=== PATIENT | female | born 1970 | race American Indian/Alaskan Native ===

== ENCOUNTER 2018-01-05 15:13 | Emergency (ER) | payer MEDICAID ==
[2018-01-05] MEDS ORDERED: Nitroglycerin 0.4 MG Tab.SL SL PRN (15:19)
[2018-01-05] MEDS ORDERED: LORazepam 2 MG/ML SDV IVPUSH ONE (15:24)
[2018-01-05] MEDS ORDERED: Sodium Chloride 0.9% 1,000 ML IV SCH (15:30)
[2018-01-05] MEDS ORDERED: HYDROmorphone 0.5 MG/0.5 ML Syringe IVPUSH ONE (15:35)
[2018-01-05] MEDS ORDERED: HYDROmorphone 1 MG/ML Syringe IVPUSH ONE ×2 (16:00→16:59)
--- NOTE | 2018-01-05 16:26 | EDM.PDOC ---
ED HPI GENERAL MEDICAL PROBLEM - General Chief Complaint: Chest Pain Stated Complaint: CHEST PAIN Time Seen by Provider: 01/05/18 15:25 Source of Information: Reports: Patient History Limitations: Reports: No Limitations (Pt arrived with pain in her left chest and neck. This started about noon. She was given niro x 2 and she did think she got some relief. The pain got worse later. She has a history of a bad ejection fraction and chf. She was at [facility] in November 2017. She has a pacemaker and a defribillator. She normally takes 3 hydrocodone daily and she has been out for 2 days. She missed her appt prior to leaving the [facility]. ) - History of Present Illness INITIAL COMMENTS - FREE TEXT/NARRATIVE: pt had chest pain about 12 thirty . She took 2 nitros and she developed pain again later in the afternoon and she was brought here. sHe has been out of her oxycodone and she is a asmita shakey because she is not taking that. She did not get to her appt Onset: Today, Other (Pt developed sudden chest pain. ) Duration: Hour(s): Location: Reports: Neck, Chest, Other ( She states the pain goes up into her neck) Associated Symptoms: Reports: Chest Pain chest Pain Score (Numeric/FACES): 8 - Related Data Allergies Allergy/AdvReac Type Severity Reaction Status Date / Time ceftriaxone [From Rocephin] Allergy Shortness Verified 01/05/18 15:27 of Breath codeine Allergy Shortness Verified 01/05/18 15:27 of Breath metformin Allergy Shortness Verified 01/05/18 15:27 of Breath morphine Allergy Shortness Verified 01/05/18 15:27 of Breath Penicillins Allergy Shortness Verified 01/05/18 15:27 of Breath Home Meds: Home Meds Acetaminophen [Tylenol] 650 mg PO Q4H PRN 01/05/18 [History] Bumetanide [Bumex] 4 mg PO BID 01/05/18 [History] Clopidogrel [Plavix] 75 mg PO DAILY 01/05/18 [History] Digoxin [Digox] 125 mcg PO DAILY 01/05/18 [History] Gabapentin [Neurontin] 300 mg PO TID 01/05/18 [History] Lisinopril [Zestril] 2.5 mg PO DAILY 01/05/18 [History] Metolazone 5 mg PO DAILY 01/05/18 [History] Metoprolol Succinate 12.5 mg PO DAILY 01/05/18 [History] Nitroglycerin [Nitrostat] 0.4 mg PO ASDIRECTED 01/05/18 [History] Pantoprazole [ProTONIX] 40 mg PO BID 01/05/18 [History] Potassium Chloride 20 meq PO BID 01/05/18 [History] Sennosides [Senna] 8.6 mg PO BID 01/05/18 [History] Sertraline [Zoloft] 50 mg PO DAILY 01/05/18 [History] Spironolactone [Aldactone] 12.5 mg PO DAILY 01/05/18 [History] Warfarin [Coumadin] 2.5 mg PO DAILY 01/05/18 [History] Warfarin [Coumadin] 5 mg PO ASDIRECTED 01/05/18 [History] diphenhydrAMINE [Benadryl] 25 mg PO BEDTIME 01/05/18 [History] oxyCODONE 5 mg PO Q6H PRN 01/05/18 [History] Past Medical History Cardiovascular History: Reports: Angina, Blood Clots/VTE/DVT, Heart Failure, [place] , Pacemaker FAMILY [employer]OURCE [employer]IST History: Reports: Psychiatric History: Reports: Anxiety - Past Surgical History GI Surgical History: Reports: Bariatric Procedure, Cholecystectomy Female Surgical History: Reports: Section, Tubal Ligation Social & Family History - Recreational Drug Use Recreational Drug Use: No ED ROS GENERAL - Review of Systems Review Of Systems: See Below Constitutional: Reports: No Symptoms HEENT: Reports: No Symptoms Respiratory: Reports: Shortness of Breath Cardiovascular: Reports: Chest Pain Endocrine: Reports: No Symptoms GI/Abdominal: Reports: No Symptoms : Reports: No Symptoms Musculoskeletal: Reports: No Symptoms Skin: Reports: No Symptoms Neurological: Reports: No Symptoms Psychiatric: Reports: Anxiety, Other ( Pt is anxious and she feels like she needs her hydrocodone. ) ED EXAM, GENERAL - Physical Exam Exam: See Below Free Text/Narrative:: pt arrived with left sided chest pain. She also has some pain on the left side of her neck. She has gotten relef with iv dilaudid She has been out of her narcotics for 3 days. She uses these for her chronic back pain. She is not markedly sob. Exam Limited By: No Limitations General Appearance: Alert, Anxious, Moderate Distress, Other (pupils equal and reactive. ) Ears: Normal TMs Ear Exam: Bilateral Ear: Auricle Normal, Canal Normal, TM normal Nose: Normal Inspection Throat/Mouth: Normal Inspection Head: Atraumatic Neck: Normal Inspection Respiratory/Chest: No Respiratory Distress Cardiovascular: Regular Rate, Rhythm, Other (pt has a pacemaker defribilatter in place. ) GI/Abdominal: Soft, Non-Tender (Female) Exam: Deferred Rectal (Female) Exam: Deferred Back Exam: Normal Inspection Extremities: Normal Inspection Neurological: Alert, Oriented, Normal Cognition Psychiatric: Normal Affect Course - Vital Signs Last Recorded V/S: Last Vital Signs Temp 36.7 C 01/05/18 15:24 Pulse 72 01/05/18 17:00 Resp 20 01/05/18 17:00 BP 96/66 01/05/18 17:00 Pulse Ox 97 01/05/18 17:00 - Orders/Labs/Meds Orders: Active Orders 24 hr Category Date Time Status EKG Documentation Completion [RC] ASDIRECTED Care 01/05/18 15:16 Active Chest 1V Frontal [CR] Stat Exams 01/05/18 15:16 Taken EKG 12 Lead [EK] Routine Ther 01/05/18 15:16 Ordered Labs: Laboratory Tests 01/05/18 01/05/18 01/05/18 Range/Units 15:16 15:16 15:16 WBC 6.9 (4.5-11.0) K/uL RBC 4.64 (3.30-5.50) M/uL Hgb 11.3 L (12.0-15.0) g/dL Hct 36.4 (36.0-48.0) % MCV 78 L (80-98) fL MCH 24 L (27-31) pg MCHC 31 L (32-36) % Plt Count 348 (150-400) K/uL Neut % (Auto) 76 H (36-66) % Lymph % (Auto) 13 L (24-44) % [place] % (Auto) 9 H (2-6) % Eos % (Auto) 2 (2-4) % Baso % (Auto) 0 (0-1) % PT (9.5-12.0) sec INR (0.80-1.20) Sodium 133 L (140-148) mmol/L Potassium 3.3 L (3.6-5.2) mmol/L Chloride 95 L (100-108) mmol/L Carbon Dioxide 27 (21-32) mmol/L Anion Gap 14.3 H (5.0-14.0) mmol/L BUN 34 H (7-18) mg/dL Creatinine 1.5 H (0.6-1.0) mg/dL Est Cr Clr Drug Dosing 41.72 mL/min Estimated GFR (MDRD) 37 L (>60) Glucose 178 H (74-106) mg/dL Calcium 8.5 (8.5-10.1) mg/dL Total Bilirubin 0.6 (0.2-1.0) mg/dL AST 33 (15-37) U/L ALT 32 (12-78) U/L Alkaline Phosphatase 129 H (46-116) U/L Troponin I 0.521 H* (0.000-0.056) ng/mL NT-Pro-B Natriuret Pep (5-125) pg/mL Total Protein 8.3 H (6.4-8.2) g/dL Albumin 3.7 (3.4-5.0) g/dL Globulin 4.6 H (2.3-3.5) g/dL Albumin/Globulin Ratio 0.8 L (1.2-2.2) Digoxin (0.90-2.00) ng/mL 01/05/18 01/05/18 01/05/18 Range/Units 16:19 16:38 16:46 WBC (4.5-11.0) K/uL RBC (3.30-5.50) M/uL Hgb (12.0-15.0) g/dL Hct (36.0-48.0) % MCV (80-98) fL MCH (27-31) pg MCHC (32-36) % Plt Count (150-400) K/uL Neut % (Auto) (36-66) % Lymph % (Auto) (24-44) % [place] % (Auto) (2-6) % Eos % (Auto) (2-4) % Baso % (Auto) (0-1) % PT 27.8 H (9.5-12.0) sec INR 2.67 H (0.80-1.20) Sodium (140-148) mmol/L Potassium (3.6-5.2) mmol/L Chloride (100-108) mmol/L Carbon Dioxide (21-32) mmol/L Anion Gap (5.0-14.0) mmol/L BUN (7-18) mg/dL Creatinine (0.6-1.0) mg/dL Est Cr Clr Drug Dosing mL/min Estimated GFR (MDRD) (>60) Glucose (74-106) mg/dL Calcium (8.5-10.1) mg/dL Total Bilirubin (0.2-1.0) mg/dL AST (15-37) U/L ALT (12-78) U/L Alkaline Phosphatase (46-116) U/L Troponin I (0.000-0.056) ng/mL NT-Pro-B Natriuret Pep 5817 H (5-125) pg/mL Total Protein (6.4-8.2) g/dL Albumin (3.4-5.0) g/dL Globulin (2.3-3.5) g/dL Albumin/Globulin Ratio (1.2-2.2) Digoxin 1.09 (0.90-2.00) ng/mL Meds: Medications Discontinued Medications Generic Name Dose Route Start Last Admin Trade Name Samanta PRN Reason Stop Dose Admin Hydromorphone HCl 0.5 mg 01/05/18 15:35 01/05/18 15:41 Dilaudid IVPUSH 01/05/18 15:36 0.5 mg ONETIME ONE Administration Hydromorphone HCl 1 mg 01/05/18 16:00 01/05/18 16:04 Dilaudid IVPUSH 01/05/18 16:01 1 mg ONETIME ONE Administration Hydromorphone HCl 1 mg 01/05/18 16:59 01/05/18 17:17 Dilaudid IVPUSH 01/05/18 17:00 1 mg ONETIME ONE Administration Sodium Chloride 1,000 mls @ 150 mls/hr 01/05/18 15:30 01/05/18 15:30 Normal Saline IV 150 mls/hr ASDIRECTED BRIJESH Administration Lorazepam 0.5 mg 01/05/18 15:24 01/05/18 15:31 Ativan IVPUSH 01/05/18 15:25 0.5 mg ONETIME ONE Administration Nitroglycerin 0.4 mg 01/05/18 15:19 Nitrostat SL Q5M PRN Chest Pain - Re-Assessments/Exams Free Text/Narrative Re-Assessment/Exam: 01/05/18 17:05 pt had a left bundle branch block which is not new for her. Her trop is elevated at .552. She has had a infarct about 1 month ago. She has a decreased ejection fraction . She has been out of her narcotics for 3 days and she normally uses oxycodone three times daily. She has got relief with the dilaudid. 01/05/18 17:09 01/06/18 08:17 Departure - Departure Time of Disposition: 17:10 Disposition: DC/Tfer to Acute Hospital 02 Reason for Transfer *Q: Primary PCI Indicated Condition: Fair Clinical Impression: Elevated troponin, Left bundle branch block, Decreased cardiac ejection fraction, Presence of combination internal cardiac defibrillator (ICD) and pacemaker Referrals: PCP,None [Primary Care Provider] - Forms: ED Department Discharge Care Plan Goals: transfer to [facility]. - My Orders Last 24 Hours: My Active Orders 01/05/18 15:16 EKG Documentation Completion [RC] ASDIRECTED Chest 1V Frontal [CR] Stat EKG 12 Lead [EK] Routine - Assessment/Plan Last 24 Hours: My Active Orders 01/05/18 15:16 EKG Documentation Completion [RC] ASDIRECTED Chest 1V Frontal [CR] Stat EKG 12 Lead [EK] Routine
--- NOTE | 2018-01-07 08:53 | CR ---
CHEST: Portable CLINICAL HISTORY:SOB, History of CHF COMPARISON:None FINDINGS: Heart is enlarged. Patient has a permanent cardiac pacer/defibrillator. Pulmonary vascular ity is normal.. No infiltrates are seen IMPRESSION: Cardiomegaly Permanent cardiac pacer/defibrillator No acute cardiopulmonary process
== END 2018-01-05 17:35 ==
LOC: JP.ED 15:13
DX: I44.7 Left bundle-branch block, unspecified (principal); R79.89 Other specified abnormal findings of blood chemistry; R93.1 Abnormal findings on diagnostic imaging of heart and coronary circulation; Z88.5 Allergy status to narcotic agent; Z88.8 Allergy status to other drugs, medicaments and biological substances; Z88.0 Allergy status to penicillin; Z79.899 Other long term (current) drug therapy; Z95.810 Presence of automatic (implantable) cardiac defibrillator; Z79.84 Long term (current) use of oral hypoglycemic drugs
CPT/HCPCS: 36415; 71045; 80053; 80162; 83880; 84484; 85025; 85610; 93005; 96361; 96374; 96375; 96376; 99285; J1170; J2060; J7030